=== PATIENT | female | born 1950 | race Hispanic/Latino ===

== ENCOUNTER → 2019-04-15 | Outpatient (CLI) | payer OTHER | END | disposition home or self-care (01) | LOC: RAH 09:00 | PROVIDERS: ATTEND Family Medicine | DX: Z12.31 Encounter for screening mammogram for malignant neoplasm of breast (principal) | CPT/HCPCS: 77067 ==

== ENCOUNTER → 2020-04-17 | Outpatient (CLI) | payer OTHER, MEDICARE | END | disposition home or self-care (01) | LOC: RAH 09:44 | PROVIDERS: ATTEND Family Medicine | DX: Z12.31 Encounter for screening mammogram for malignant neoplasm of breast (principal) ==

== ENCOUNTER → 2020-05-09 | Outpatient (CLI) | payer OTHER, MEDICARE | END | disposition home or self-care (01) | LOC: RAH 08:30 | PROVIDERS: ATTEND Family Medicine | DX: K76.0 Fatty (change of) liver, not elsewhere classified (principal); D69.6 Thrombocytopenia, unspecified | CPT/HCPCS: 76700 ==

== ENCOUNTER → 2021-04-29 | Outpatient (CLI) | payer OTHER, MEDICARE | END | disposition home or self-care (01) | LOC: RAH 13:45 | PROVIDERS: ATTEND Family Medicine | DX: Z12.31 Encounter for screening mammogram for malignant neoplasm of breast (principal); Z00.01 Encounter for general adult medical examination with abnormal findings | CPT/HCPCS: 77067 ==

== ENCOUNTER → 2022-04-30 | Outpatient (CLI) | payer OTHER, MEDICARE | END | disposition home or self-care (01) | LOC: RAH 09:08 | PROVIDERS: ATTEND Family Medicine | DX: Z12.31 Encounter for screening mammogram for malignant neoplasm of breast (principal) | CPT/HCPCS: 77067 ==

== ENCOUNTER 2022-10-12 02:05 | Observation (INO) | payer OTHER, MEDICARE ==
[~2022-10-12] VITALS: Ht 154.9 cm; Wt 69.6 kg
[2022-10-12 02:37] LABS: BASOPHILS % (AUTO) 0.2 % (0.0-5.0); EOSINOPHILS % (AUTO) 0.4 % (0.0-8.0); HEMATOCRIT 34.7 % (36-48); LYMPHOCYTES % (AUTO) 17.3 % (21.0-51.0); MEAN CORPUSCULAR HEMOGLOBIN 28.8 pg (27.0-33.0); MEAN CORPUSCULAR HGB CONC 36.9 g/dL (32.0-36.0); MEAN CORPUSCULAR VOLUME 78.2 fL (79-99); MONOCYTES % (AUTO) 4.6 % (3.0-13.0); NEUTROPHILS % (AUTO) 77.3 % (40.0-77.0); PLATELET COUNT (AUTO) 141 K/uL (130-400); RED BLOOD CELL COUNT(AUTO) 4.44 MIL/uL (4.00-5.50); RED CELL DISTRIBUTION WIDTH 11.6 % (11.0-15.5); WHITE BLOOD COUNT (AUTO) 8.5 K/uL (4.8-10.8)
[2022-10-12 02:43] LABS: APPEARANCE,URINE CLEAR (CLEAR); BILIRUBIN,URINE NEGATIVE (NEGATIVE); COLOR,URINE COLORLESS (YELLOW); GLUCOSE, URINE (UA) >=1000 mg/dL (NEGATIVE); KETONES,URINE 5 mg/dL (NEGATIVE); LEUKOCYTE ESTERASE ,URINE NEGATIVE Leu/uL (NEGATIVE); NITRATE,URINE NEGATIVE (NEGATIVE); PH,URINE 7.5 (5.0-8.0); PROTEIN,URINE NEGATIVE (NEGATIVE); UROBILINOGEN,URINE 0.2 mg/dL (0.2-1.0)
[2022-10-12 02:53] LABS: ALBUMIN 3.9 g/dL (3.5-5.0); CREATININE 0.7 mg/dL (0.5-1.5); POTASSIUM 4.6 mmol/L (3.5-5.1); RBC,URINE 0-1 /HPF (0-1); TOTAL PROTEIN, SERUM 7.2 g/dL (6.0-8.3)
[2022-10-12 02:54] LABS: BACTERIA,URINE None Seen /HPF (None Seen); SQUAMOUS EPITHELIAL CELL,UR Rare /HPF (0-2); WBC,URINE None Seen /HPF (0-1)
[2022-10-12] MEDS: 0.9%NACL 1000ML 1,000 ML IV SCH ×2 (03:35→10:37)
[2022-10-12] MEDS: SODIUM CHLORIDE 1,000 MG TAB PO SCH ×2 (04:51→08:49)
[2022-10-12] MEDS ORDERED: MAGNESIUM 2GM PREMIX 50ML 50 ML IV PRN ×2 (05:00→10:30)
[2022-10-12] MEDS ORDERED: DOCUSATE SODIUM 100 MG CAP PO PRN (05:00)
[2022-10-12] MEDS ORDERED: KCL 20 MEQ ERTAB PO PRN ×2 (05:00→10:30)
[2022-10-12] MEDS ORDERED: CLONIDINE HCL 0.1 MG TABLET PO PRN (05:00)
[2022-10-12] MEDS ORDERED: TEMAZEPAM 15 MG CAPSULE PO PRN (05:00)
[2022-10-12] MEDS ORDERED: DEXTROSE 50%-WATER 50 ML DISP.SYRIN IV PRN ×2 (05:00→10:30)
[2022-10-12] MEDS ORDERED: ACETAMINOPHEN 650 MG SUPPOSITORY RC PRN (05:00)
[2022-10-12] MEDS ORDERED: LABETALOL 20MG SYG IV PRN (05:00)
[2022-10-12] MEDS ORDERED: LIDOCAINE HCL-MPF 1% 2ML VIAL IV PRN ×2 (05:00→10:30)
[2022-10-12] MEDS ORDERED: GLUCAGON 1MG KIT 1 MG ML IM PRN ×2 (05:00→10:30)
[2022-10-12] MEDS ORDERED: LACTULOSE 20 GM/30 ML UDCUP PO PRN (05:00)
[2022-10-12] MEDS ORDERED: ACETAMINOPHEN 325 MG TAB PO PRN (05:00)
[2022-10-12] MEDS ORDERED: POTASSIUM CHLORIDE 10% ELIXIR 20 MEQ/15 ML UDCUP PO PRN ×2 (05:00→10:30)
[2022-10-12] MEDS ORDERED: HYDRALAZINE 20MG/ML VIAL IV PRN (05:00)
[2022-10-12] MEDS ORDERED: POTASSIUM CHLORIDE 20MEQ/100ML 100 ML IV PRN ×2 (05:00→10:30)
[2022-10-12] MEDS: PANTOPRAZOLE 40 MG TAB DR PO SCH ×2 (06:01→08:49)
[2022-10-12 06:33] VITALS: BP 150/72
[2022-10-12] MEDS: INSULIN HUMULIN R 100 UNIT/ML 3ML SQ SCH ×5 (06:53→20:55)
[2022-10-12 08:13] VITALS: BP 140/62
[2022-10-12] MEDS: ENOXAPARIN SODIUM 30 MG/0.3 ML SQ SCH ×2 (08:49→17:29)
[2022-10-12] MEDS: ONDANSETRON 4MG INJ IVP PRN (08:49)
[2022-10-12] MEDS ORDERED: 0.9%NACL 1000ML 1,000 ML IV SCH (10:00)
[2022-10-12 10:36] LABS: CHLORIDE,URINE RANDOM 79 mmol/L (110-250); POTASSIUM,URINE RANDOM 36 mmol/L (25-125); SODIUM,URINE RANDOM 80 mmol/l (40-220)
[2022-10-12 10:42] LABS: INR 0.97 (0.85-1.15); PROTHROMBIN TIME 10.6 SEC (9.6-11.6)
[2022-10-12 10:44] LABS: CREATININE 0.7 mg/dL (0.5-1.5); PARTIAL THROMBOPLASTIN TIME 28.1 SEC (26.3-35.5); POTASSIUM 4.4 mmol/L (3.5-5.1)
[2022-10-12] MEDS ORDERED: ETOD400T4 PO (10:53)
[2022-10-12] MEDS ORDERED: LEVO125T11 PO (10:53)
[2022-10-12] MEDS ORDERED: LISI20TA24 PO (10:53)
[2022-10-12] MEDS ORDERED: ASPI-1443 PO (10:53)
[2022-10-12] MEDS ORDERED: ATOR40TA69 PO (10:53)
[2022-10-12] MEDS ORDERED: LINA5TAB PO (10:53)
[2022-10-12] MEDS ORDERED: AZIT250T9 PO (10:53)
[2022-10-12] MEDS ORDERED: METF-527 PO (10:53)
[2022-10-12] MEDS ORDERED: MECO10005 PO (10:53)
[2022-10-12] MEDS ORDERED: FOLI0.4T6 PO (10:53)
[2022-10-12] MEDS ORDERED: DESL5TAB45 PO (10:53)
[2022-10-12] MEDS ORDERED: BENZ-70 PO (10:53)
[2022-10-12] MEDS ORDERED: IPRATROPIUM/ALBUTEROL SULFATE 3 ML SOLUTION IH ONE (11:32)
[2022-10-12 12:18] VITALS: BP 122/76
[2022-10-12] MEDS ORDERED: 0.9%NACL 100ML 100 ML ONE (14:17)
[2022-10-12] MEDS: CEFTRIAXONE 2GM VIAL IVP SCH (14:18)
[2022-10-12] MEDS: AZITHROMYCIN 500MG+NS 250ML IVPB SCH (14:19)
[2022-10-12] MEDS: SUCRALFATE 1 GM TABLET PO SCH ×3 (14:19→23:40)
[2022-10-12 16:02] VITALS: BP 113/65
[2022-10-12 16:16] LABS: CREATININE 0.8 mg/dL (0.5-1.5); POTASSIUM 4.7 mmol/L (3.5-5.1)
[2022-10-12] MEDS ORDERED: GUAIFENESIN-DM 200/20 MG 10 ML ONE (17:48)
[2022-10-12] MEDS ORDERED: GUAIFENESIN-DM 200/20 MG 10 ML PO PRN (18:00)
[2022-10-12] MEDS: IPRATROPIUM/ALBUTEROL SULFATE 3 ML SOLUTION IH SCH ×2 (20:11→23:18)
[2022-10-12 20:27] VITALS: BP 135/74
[2022-10-12] MEDS: BENZONATATE 100 MG CAPSULE PO SCH (20:55)
[2022-10-12] MEDS: ATORVASTATIN 40 MG TABLET PO SCH (20:55)
[2022-10-12 22:45] LABS: CREATININE 0.8 mg/dL (0.5-1.5); POTASSIUM 4.2 mmol/L (3.5-5.1)
[2022-10-13] VITALS (7 sets, daily range): BP systolic 120–161; BP diastolic 65–94
[2022-10-13 03:53] LABS: HEMATOCRIT 35.8 % (36-48); MEAN CORPUSCULAR HEMOGLOBIN 28.9 pg (27.0-33.0); MEAN CORPUSCULAR HGB CONC 34.6 g/dL (32.0-36.0); MEAN CORPUSCULAR VOLUME 83.4 fL (79-99); RED BLOOD CELL COUNT(AUTO) 4.29 MIL/uL (4.00-5.50); WHITE BLOOD COUNT (AUTO) 5.7 K/uL (4.8-10.8)
[2022-10-13 04:02] LABS: CREATININE 0.8 mg/dL (0.5-1.5); MAGNESIUM 1.5 mg/dL (1.80-2.40); PHOSPHORUS 4.6 mg/dL (2.5-4.9); POTASSIUM 4.2 mmol/L (3.5-5.1)
[2022-10-13] MEDS: LEVOTHYROXINE 125 MCG TABLET PO SCH (06:12)
[2022-10-13] MEDS: SUCRALFATE 1 GM TABLET PO SCH ×4 (06:12→23:52)
[2022-10-13] MEDS: INSULIN HUMULIN R 100 UNIT/ML 3ML SQ SCH ×4 (06:13→21:00)
[2022-10-13] MEDS: IPRATROPIUM/ALBUTEROL SULFATE 3 ML SOLUTION IH SCH ×4 (06:54→23:15)
[2022-10-13] MEDS: CYANOCOBALAMIN (VITAMIN B-12) 1,000 MCG TABLET PO SCH (08:44)
[2022-10-13] MEDS: ASPIRIN 81 MG EC TAB PO SCH (08:44)
[2022-10-13] MEDS: FOLIC ACID 1 MG TABLET PO SCH (08:44)
[2022-10-13] MEDS: BENZONATATE 100 MG CAPSULE PO SCH ×3 (08:55→22:50)
[2022-10-13] MEDS: PANTOPRAZOLE 40 MG TAB DR PO SCH ×2 (08:55→22:50)
[2022-10-13] MEDS ORDERED: NON-FORMULARY MEDICATION 1 EACH (Folic Acid 1 MG) PO SCH (09:00)
[2022-10-13] MEDS ORDERED: NON-FORMULARY MEDICATION 1 EACH (Mecobalamin (B12 Active) 1,000 MCG) PO SCH (09:00)
[2022-10-13] MEDS ORDERED: PROPOFOL 10 MG/ML 20ML VIAL IV ONE (12:20)
[2022-10-13] MEDS ORDERED: LACTULOSE 20 GM/30 ML UDCUP PO SCH ×2 (14:00→16:00)
[2022-10-13] MEDS ORDERED: 0.9%NACL 100ML 100 ML ONE (14:02)
[2022-10-13] MEDS: AZITHROMYCIN 500MG+NS 250ML IVPB SCH (14:03)
[2022-10-13] MEDS: CEFTRIAXONE 2GM VIAL IVP SCH (14:03)
[2022-10-13 14:12] LABS: CREATININE 0.7 mg/dL (0.5-1.5); POTASSIUM 4.4 mmol/L (3.5-5.1)
[2022-10-13] MEDS: ENOXAPARIN SODIUM 30 MG/0.3 ML SQ SCH (16:12)
[2022-10-13] MEDS ORDERED: PEG 3350/NA SULF,BICARB,CL/KCL 4000 ML SOLN PO SCH (17:00)
[2022-10-13] MEDS: LEVOFLOXACIN 500 MG/D5W 100 ML 100 ML IV SCH (17:04)
[2022-10-13] MEDS: ONDANSETRON 4MG INJ IVP PRN (17:09)
[2022-10-13] MEDS ORDERED: BISACODYL 5 MG TABLET.DR PO SCH (21:00)
[2022-10-13] MEDS: ATORVASTATIN 40 MG TABLET PO SCH (22:51)
[2022-10-14] VITALS (20 sets, daily range): BP systolic 97–145; BP diastolic 47–86
[2022-10-14 04:42] LABS: HEMATOCRIT 34.4 % (36-48); MEAN CORPUSCULAR HEMOGLOBIN 28.7 pg (27.0-33.0); MEAN CORPUSCULAR HGB CONC 35.5 g/dL (32.0-36.0); MEAN CORPUSCULAR VOLUME 80.9 fL (79-99); RED BLOOD CELL COUNT(AUTO) 4.25 MIL/uL (4.00-5.50); RED CELL DISTRIBUTION WIDTH 12.1 % (11.0-15.5); WHITE BLOOD COUNT (AUTO) 7.5 K/uL (4.8-10.8)
[2022-10-14 05:09] LABS: ALBUMIN 3.4 g/dL (3.5-5.0); CREATININE 0.7 mg/dL (0.5-1.5); MAGNESIUM 1.8 mg/dL (1.80-2.40); PHOSPHORUS 3.7 mg/dL (2.5-4.9); POTASSIUM 3.9 mmol/L (3.5-5.1); TOTAL PROTEIN, SERUM 6.9 g/dL (6.0-8.3)
[2022-10-14] MEDS: SUCRALFATE 1 GM TABLET PO SCH ×3 (06:00→17:40)
[2022-10-14] MEDS: LEVOTHYROXINE 125 MCG TABLET PO SCH (06:30)
[2022-10-14] MEDS: IPRATROPIUM/ALBUTEROL SULFATE 3 ML SOLUTION IH SCH ×3 (06:32→18:47)
[2022-10-14] MEDS: INSULIN HUMULIN R 100 UNIT/ML 3ML SQ SCH ×4 (06:37→21:00)
[2022-10-14] MEDS ORDERED: 0.9%NACL 1000ML 1,000 ML IV ONE (11:45)
[2022-10-14] MEDS ORDERED: PROPOFOL 10 MG/ML 20ML VIAL IV ONE (12:55)
[2022-10-14] MEDS ORDERED: LIDOCAINE PF 100MG/5ML (2%) SYRINGE 5ML ONE (12:55)
[2022-10-14] MEDS: BENZONATATE 100 MG CAPSULE PO SCH ×3 (14:00→21:45)
[2022-10-14] MEDS: CYANOCOBALAMIN (VITAMIN B-12) 1,000 MCG TABLET PO SCH (14:46)
[2022-10-14] MEDS: ASPIRIN 81 MG EC TAB PO SCH (14:46)
[2022-10-14] MEDS: FOLIC ACID 1 MG TABLET PO SCH (14:47)
[2022-10-14] MEDS: CEFTRIAXONE 2GM VIAL IVP SCH (14:49)
[2022-10-14] MEDS: PANTOPRAZOLE 40 MG TAB DR PO SCH ×2 (14:54→21:45)
[2022-10-14] MEDS: LEVOFLOXACIN 500 MG/D5W 100 ML 100 ML IV SCH (17:40)
[2022-10-14] MEDS: ATORVASTATIN 40 MG TABLET PO SCH (21:45)
[2022-10-15] VITALS (20 sets, daily range): BP systolic 135–183; BP diastolic 68–90
[2022-10-15] MEDS: IPRATROPIUM/ALBUTEROL SULFATE 3 ML SOLUTION IH SCH ×3 (00:07→11:57)
[2022-10-15] MEDS: SUCRALFATE 1 GM TABLET PO SCH ×4 (06:00→17:31)
[2022-10-15] MEDS: FOLIC ACID 1 MG TABLET PO SCH (09:00)
[2022-10-15] MEDS: CYANOCOBALAMIN (VITAMIN B-12) 1,000 MCG TABLET PO SCH (09:00)
[2022-10-15] MEDS: ASPIRIN 81 MG EC TAB PO SCH (09:00)
[2022-10-15] MEDS: ENOXAPARIN SODIUM 30 MG/0.3 ML SQ SCH (09:00)
[2022-10-15] MEDS: INSULIN HUMULIN R 100 UNIT/ML 3ML SQ SCH ×2 (11:30→16:33)
[2022-10-15] MEDS ORDERED: LIDOCAINE PF 100MG/5ML (2%) SYRINGE 5ML ONE (11:40)
[2022-10-15] MEDS ORDERED: PROPOFOL 10 MG/ML 20ML VIAL IV ONE (11:40)
[2022-10-15] MEDS ORDERED: GLYCOPYRROLATE 1 MG/5 ML SYRINGE ONE (11:41)
[2022-10-15] MEDS ORDERED: ESMOLOL HCL 10 MG/ML 10 ML VIAL ONE (11:51)
[2022-10-15] MEDS: PANTOPRAZOLE 40 MG TAB DR PO SCH (13:37)
[2022-10-15] MEDS: BENZONATATE 100 MG CAPSULE PO SCH ×2 (13:38→13:43)
[2022-10-15] MEDS: CEFTRIAXONE 2GM VIAL IVP SCH (13:38)
[2022-10-15] MEDS: LEVOFLOXACIN 500 MG/D5W 100 ML 100 ML IV SCH (16:06)
[2022-10-15] MEDS ORDERED: SUCR1TAB PO (17:20)
[2022-10-15] MEDS ORDERED: DOXY100T21 PO (17:20)
== END 2022-10-15 18:10 | disposition home or self-care (01) ==
LOC: EDH 02:05 → EDHIP 04:14 → 2DH 06:06 → 4DH 10-15 00:14
PROVIDERS: ADMIT Internal Medicine; ATTEND Internal Medicine
DX: E87.1 Hypo-osmolality and hyponatremia (principal); Z20.822 Contact with and (suspected) exposure to COVID-19; J20.9 Acute bronchitis, unspecified; K21.9 Gastro-esophageal reflux disease without esophagitis; I10 Essential (primary) hypertension; E11.9 Type 2 diabetes mellitus without complications; E78.5 Hyperlipidemia, unspecified; E03.9 Hypothyroidism, unspecified; D64.9 Anemia, unspecified; N28.9 Disorder of kidney and ureter, unspecified; E66.9 Obesity, unspecified; E78.00 Pure hypercholesterolemia, unspecified; B96.81 Helicobacter pylori [H. pylori] as the cause of diseases classified elsewhere; E87.8 Other disorders of electrolyte and fluid balance, not elsewhere classified; I25.10 Atherosclerotic heart disease of native coronary artery without angina pectoris; K21.00 Gastro-esophageal reflux disease with esophagitis, without bleeding; K29.70 Gastritis, unspecified, without bleeding; K29.80 Duodenitis without bleeding; K57.30 Diverticulosis of large intestine without perforation or abscess without bleeding; K64.8 Other hemorrhoids; R62.7 Adult failure to thrive; R63.1 Polydipsia; T50.2X5A Adverse effect of carbonic-anhydrase inhibitors, benzothiadiazides and other diuretics, initial encounter; Z90.49 Acquired absence of other specified parts of digestive tract; Z98.891 History of uterine scar from previous surgery; Z79.899 Other long term (current) drug therapy; Z98.890 Other specified postprocedural states; Z90.710 Acquired absence of both cervix and uterus; Z68.29 Body mass index [BMI] 29.0-29.9, adult
CPT/HCPCS: 96372 ×4; 96365; 96366 ×5; 96375; 99284; 84443; 82550; 80051; 83874; 84484 ×2; 80053 ×2; 83880; 83690; 85025; 85610; 85730; 87804 ×2; 82948 ×15; 81001; 36415 ×3; 87635; 71045 ×2; 74176; 93005; 94640 ×12; 94664; 96376 ×3; 96367; 86677; 83735 ×2; 84100 ×2; 80048 ×2; 85027 ×2; 82533; 88305; 88342; 43239; 45378; 44376; G0378 ×77; J7030 ×5; J0696 ×4; J1650; J2405 ×2; J0456 ×2; J1815 ×4; J3475; J1956 ×3; J2704 ×3; A4620 ×3; A4215 ×2; A4223 ×3; A4222 ×3; A4216 ×2; J2001 ×2; A4657; A7002; J3490 ×2; 44360

== ENCOUNTER → 2023-01-01 | Outpatient (CLI) | payer OTHER, MEDICARE ==
[~2023-01-01] MED LIST: ASPI-1443 PO; ATOR40TA69 PO; BENZ-226 PO; DESL5TAB45 PO; DOXY100T21 PO; FOLI0.4T6 PO; LEVO125T11 PO; LINA5TAB PO; LISI20TA24 PO; MECO10005 PO; METF-527 PO; SUCR1TAB PO
== END | disposition home or self-care (01) ==
LOC: RAH 12:25
PROVIDERS: ATTEND Orthopaedic Surgery
DX: M71.22 Synovial cyst of popliteal space [Baker], left knee (principal); I70.0 Atherosclerosis of aorta
CPT/HCPCS: 93925

== ENCOUNTER → 2023-03-27 | Outpatient (CLI) | payer OTHER, MEDICARE | END | disposition home or self-care (01) | LOC: RAH 11:59 | PROVIDERS: ATTEND Orthopaedic Surgery | DX: M17.11 Unilateral primary osteoarthritis, right knee (principal) | CPT/HCPCS: 73700 ==

== ENCOUNTER 2023-04-07 07:19 | Observation (INO) | payer OTHER, MEDICARE ==
[2023-04-01 15:46] LABS: BASOPHILS % (AUTO) 0.3 % (0.0-5.0); EOSINOPHILS % (AUTO) 1.1 % (0.0-8.0); HEMATOCRIT 38.3 % (36-48); LYMPHOCYTES % (AUTO) 26.9 % (21.0-51.0); MEAN CORPUSCULAR HEMOGLOBIN 28.6 pg (27.0-33.0); MEAN CORPUSCULAR HGB CONC 33.2 g/dL (32.0-36.0); MEAN CORPUSCULAR VOLUME 86.3 fL (79-99); NEUTROPHILS % (AUTO) 65.5 % (40.0-77.0); PLATELET COUNT (AUTO) 118 K/uL (130-400); RED BLOOD CELL COUNT(AUTO) 4.44 MIL/uL (4.00-5.50); WHITE BLOOD COUNT (AUTO) 8.8 K/uL (4.8-10.8)
[2023-04-01 15:54] LABS: CREATININE 0.8 mg/dL (0.5-1.5); POTASSIUM 4.9 mmol/L (3.5-5.1)
[2023-04-01 15:56] LABS: INR 0.97 (0.85-1.15); PROTHROMBIN TIME 10.6 SEC (9.6-11.6)
[2023-04-01 15:57] LABS: PARTIAL THROMBOPLASTIN TIME 25.6 SEC (26.3-35.5)
[2023-04-01 16:12] VITALS: BP 137/62
[2023-04-07] VITALS (26 sets, daily range): BP systolic 119–143; BP diastolic 53–71
[~2023-04-07] VITALS: Ht 149.9 cm; Wt 70.9 kg
[~2023-04-07 07:19] MED LIST changes: -BENZ-226 PO; -DESL5TAB45 PO; -DOXY100T21 PO; +LATA2.5D14 OU; -LEVO125T11 PO; +LEVO25TA54 PO; -SUCR1TAB PO
[2023-04-07] MEDS: METFORMIN HCL 500 MG TAB.SR.24H PO SCH ×2 (08:00→17:00)
[2023-04-07] MEDS ORDERED: 0.9%NACL 1000ML 1,000 ML IV ONE (08:27)
[2023-04-07] MEDS ORDERED: CEFAZOLIN SODIUM 2 GM VIAL ONE (08:28)
[2023-04-07] MEDS: LINAGLIPTIN 5 MG TABLET PO SCH (09:00)
[2023-04-07] MEDS: LISINOPRIL 20 MG TABLET PO SCH (09:00)
[2023-04-07] MEDS ORDERED: ONDANSETRON 4MG INJ IVP PRN (10:00)
[2023-04-07] MEDS ORDERED: KCL 20 MEQ ERTAB PO PRN (10:00)
[2023-04-07] MEDS ORDERED: POTASSIUM CHLORIDE 10% ELIXIR 20 MEQ/15 ML UDCUP PO PRN (10:00)
[2023-04-07] MEDS ORDERED: HYDROCODONE/ACETAMINOPHEN 5/325 MG TAB PO PRN (10:00)
[2023-04-07] MEDS: 0.9%NACL 1000ML 1,000 ML IV SCH ×2 (10:00→21:41)
[2023-04-07] MEDS ORDERED: POTASSIUM CHLORIDE 20MEQ/100ML 100 ML IV PRN (10:00)
[2023-04-07] MEDS ORDERED: ONDANSETRON 4MG INJ ONE (11:04)
[2023-04-07] MEDS ORDERED: MIDAZOLAM HCL 1 MG/ML 2ML VIAL ONE (11:04)
[2023-04-07] MEDS ORDERED: SUCCINYLCHOLINE 200MG/10ML SYR ONE (11:04)
[2023-04-07] MEDS ORDERED: GLYCOPYRROLATE 1 MG/5 ML SYRINGE ONE (11:04)
[2023-04-07] MEDS ORDERED: PROPOFOL 10 MG/ML 20ML VIAL IV ONE (11:04)
[2023-04-07] MEDS ORDERED: LIDOCAINE PF 100MG/5ML (2%) SYRINGE 5ML ONE (11:04)
[2023-04-07] MEDS ORDERED: NEOSTIGMINE 5MG/5ML SYR IV ONE (11:04)
[2023-04-07] MEDS ORDERED: DEXAMETHASONE SOD PHOSPHATE 10MG/ML 1ML VIAL ONE (11:04)
[2023-04-07] MEDS ORDERED: FENTANYL CITRATE PF 50 MCG/1 ML 2ML VIAL ONE (11:05)
[2023-04-07] MEDS ORDERED: TRANEXAMIC ACID 1000MG/10ML ONE (11:12)
[2023-04-07] MEDS ORDERED: ROPIVACAINE 0.5% 5MG/ML 30ML IJ ONE (11:14)
[2023-04-07] MEDS: INSULIN HUMULIN R 100 UNIT/ML 3ML SQ SCH ×3 (11:30→21:33)
[2023-04-07] MEDS ORDERED: EPHEDRINE SULFATE 50 MG/ML AMPULE ONE (11:50)
[2023-04-07] MEDS ORDERED: MORPHINE PF 100MG/10ML AMP IV ONE (12:55)
[2023-04-07] MEDS ORDERED: ROCURONIUM BROMIDE 10MG/1ML 5ML VL ONE (12:55)
[2023-04-07] MEDS ORDERED: KETOROLAC 30MG VIAL (30MG/ML) ONE (12:58)
[2023-04-07] MEDS: ACETAMINOPHEN 1,000 MG/100 ML VIAL IV SCH ×3 (14:08→21:46)
[2023-04-07] MEDS ORDERED: ALBUTEROL 0.083% 2.5 MG/3 ML INH IH ONE (14:19)
[2023-04-07] MEDS ORDERED: EPINEPHRINE PF 1MG (1:1,000) 1 MG/ML AMP ONE (14:27)
[2023-04-07] MEDS: RACEPINEPHRINE HCL 2.25% 0.5 ML NEB SOLN NEB SCH (14:30)
[2023-04-07] MEDS: CEFAZOLIN SODIUM 1 GM VIAL IVPB SCH ×2 (15:00→22:37)
[2023-04-07] MEDS: IBUPROFEN 800MG + NS 250ML IV SCH ×2 (16:38→18:53)
[2023-04-07] MEDS: HYDROCODONE/ACETAMINOPHEN 10/325 MG TAB PO PRN ×2 (16:53→18:53)
[2023-04-07] MEDS: LATANOPROST 2.5 ML DROPS OU SCH (21:31)
[2023-04-07] MEDS: FAMOTIDINE 20MG TAB PO SCH (21:31)
[2023-04-08] VITALS (7 sets, daily range): BP systolic 96–132; BP diastolic 45–63
[2023-04-08] MEDS: IBUPROFEN 800MG + NS 250ML IV SCH (04:34)
[2023-04-08 04:40] LABS: HEMATOCRIT 33.2 % (36-48); MEAN CORPUSCULAR HGB CONC 33.7 g/dL (32.0-36.0); RED BLOOD CELL COUNT(AUTO) 3.86 MIL/uL (4.00-5.50); RED CELL DISTRIBUTION WIDTH 11.9 % (11.0-15.5); WHITE BLOOD COUNT (AUTO) 11.6 K/uL (4.8-10.8)
[2023-04-08 04:57] LABS: CREATININE 0.8 mg/dL (0.5-1.5); POTASSIUM 4.2 mmol/L (3.5-5.1)
[2023-04-08] MEDS: INSULIN HUMULIN R 100 UNIT/ML 3ML SQ SCH ×4 (05:40→21:00)
[2023-04-08] MEDS: 0.9%NACL 1000ML 1,000 ML IV SCH (06:00)
[2023-04-08] MEDS: LEVOTHYROXINE 25 MCG TABLET PO SCH (06:32)
[2023-04-08] MEDS: FAMOTIDINE 20MG TAB PO SCH ×2 (08:20→21:01)
[2023-04-08] MEDS: POLYETHYLENE GLYCOL 3350 17 GM POWD.PACK PO SCH (08:20)
[2023-04-08] MEDS: LINAGLIPTIN 5 MG TABLET PO SCH (08:21)
[2023-04-08] MEDS: METFORMIN HCL 500 MG TAB.SR.24H PO SCH ×2 (08:21→16:46)
[2023-04-08] MEDS: HYDROCODONE/ACETAMINOPHEN 10/325 MG TAB PO PRN ×3 (08:23→16:46)
[2023-04-08] MEDS: LISINOPRIL 20 MG TABLET PO SCH (09:00)
[2023-04-08] MEDS: RACEPINEPHRINE HCL 2.25% 0.5 ML NEB SOLN NEB SCH (11:45)
[2023-04-08] MEDS ORDERED: HYDR-4068 PO (16:50)
[2023-04-08] MEDS: ASPIRIN 81 MG EC TAB PO SCH (21:01)
[2023-04-08] MEDS: MORPHINE 4 MG SYG IVP PRN (21:02)
[2023-04-08] MEDS: LATANOPROST 2.5 ML DROPS OU SCH (21:03)
[2023-04-09] MEDS: MORPHINE 4 MG SYG IVP PRN ×2 (01:54→06:45)
[2023-04-09 04:12] VITALS: BP 140/69
[2023-04-09] MEDS: LEVOTHYROXINE 25 MCG TABLET PO SCH (06:44)
[2023-04-09] MEDS: INSULIN HUMULIN R 100 UNIT/ML 3ML SQ SCH ×3 (06:44→11:47)
[2023-04-09] MEDS: POLYETHYLENE GLYCOL 3350 17 GM POWD.PACK PO SCH (07:35)
[2023-04-09] MEDS: LINAGLIPTIN 5 MG TABLET PO SCH (07:36)
[2023-04-09] MEDS: FAMOTIDINE 20MG TAB PO SCH (07:36)
[2023-04-09] MEDS: METFORMIN HCL 500 MG TAB.SR.24H PO SCH (07:36)
[2023-04-09] MEDS: ASPIRIN 81 MG EC TAB PO SCH (07:36)
[2023-04-09] MEDS: LISINOPRIL 20 MG TABLET PO SCH (07:37)
[2023-04-09] MEDS: HYDROCODONE/ACETAMINOPHEN 10/325 MG TAB PO PRN ×2 (07:39→11:45)
[2023-04-09 08:14] VITALS: BP 154/71
[2023-04-09 11:51] VITALS: BP 152/67
[2023-04-09] MEDS: RACEPINEPHRINE HCL 2.25% 0.5 ML NEB SOLN NEB SCH (14:30)
[2023-04-10] MEDS ORDERED: BISACODYL 10 MG SUPP.RECT RC PRN (10:00)
== END 2023-04-09 16:58 | disposition home or self-care (01) ==
LOC: DAH 07:19 → DAHIP 07:20 → DAH 07:20 → 4DH 17:15
PROVIDERS: ADMIT Orthopaedic Surgery; ATTEND Orthopaedic Surgery
DX: M17.11 Unilateral primary osteoarthritis, right knee (principal); Z20.822 Contact with and (suspected) exposure to COVID-19; E11.9 Type 2 diabetes mellitus without complications; E78.5 Hyperlipidemia, unspecified; I10 Essential (primary) hypertension; E66.9 Obesity, unspecified; Z96.651 Presence of right artificial knee joint; Z79.899 Other long term (current) drug therapy
CPT/HCPCS: 80048 ×2; 85025; 85610; 85730; 87426; 36415 ×2; 87641; 27447; 64447; 96376 ×2; 96372 ×3; 96365; 96366 ×2; 96375 ×2; 96367; 82948 ×9; 94640; 85027; 73562; 97161; 97039 ×4; 97116 ×4; 97530; A6260; C1776 ×4; G0378 ×49; A4663; J7030 ×2; J3010; J0690 ×2; J3490 ×4; J0330; J1100; J2710; J2001; J0171; J2250; J2704; J2274; J2405 ×2; J1885; J2795; J1741 ×2; J1815 ×2; A6223; G0168; A4649 ×3; A4930; A6212; A5120 ×2; A4215; A4223; A4222; A4221; J2270 ×3

== ENCOUNTER → 2023-05-07 | Outpatient (CLI) | payer OTHER, MEDICARE ==
[~2023-05-07] MED LIST changes: +HYDR-4068 PO
== END | disposition home or self-care (01) ==
LOC: RAH 09:15
PROVIDERS: ATTEND Family Medicine
DX: Z12.31 Encounter for screening mammogram for malignant neoplasm of breast (principal)
CPT/HCPCS: 77067

== ENCOUNTER → 2024-05-10 | Outpatient (CLI) | payer OTHER, MEDICARE | END | disposition home or self-care (01) | LOC: RAH 07:55 | PROVIDERS: ATTEND Family Medicine | DX: Z12.31 Encounter for screening mammogram for malignant neoplasm of breast (principal) | CPT/HCPCS: 77067 ==

== ENCOUNTER → 2024-08-02 | Outpatient (CLI) | payer OTHER, MEDICARE | END | disposition home or self-care (01) | LOC: SHCH 09:56 | PROVIDERS: ATTEND Internal Medicine Cardiovascular Disease | DX: I25.119 Atherosclerotic heart disease of native coronary artery with unspecified angina pectoris (principal); R01.1 Cardiac murmur, unspecified | CPT/HCPCS: 93306 ==

== ENCOUNTER → 2024-08-12 | Outpatient (CLI) | payer OTHER, MEDICARE ==
[2024-08-12] MEDS: REGADENOSON 0.4 MG/5 ML PF SYG IVP ONE (11:25)
== END | disposition home or self-care (01) ==
LOC: SHCH 08:46
PROVIDERS: ATTEND Internal Medicine Cardiovascular Disease
DX: I25.10 Atherosclerotic heart disease of native coronary artery without angina pectoris (principal); R01.1 Cardiac murmur, unspecified
CPT/HCPCS: 78452; 93017; J2785; A9500 ×2

== ENCOUNTER → 2025-04-04 | Outpatient (CLI) | payer OTHER, MEDICARE ==
--- NOTE | 2025-04-04 14:14 | HMCIMG ---
MRI OF THE CERVICAL SPINE WITHOUT GADOLINIUM Technique: Sagittal T1 and T2 FSE, Sagittal STIR and Sagittal proton density images were completed through the cervical spine. Axial T1, T2 and proton density images were also acquired. FINDINGS: There are spondylitic changes of the cervical spine and there is straightening consistent with spasm. No cord signal abnormalities are seen. Evaluation of the cervical spine by level: C1-C2: There is no spinal canal stenosis. No disc protrusion or extrusion is noted. There is no neural foraminal stenosis, impingement, or narrowing. C2-C3: There is no spinal canal stenosis. No disc protrusion or extrusion is noted. There is no neural foraminal stenosis, impingement, or narrowing. C3-C4: There is a central zone disc protrusion causing spinal canal stenosis. Bilateral nerve root impingement noted. C4-C5: There is a central zone disc protrusion causing spinal canal stenosis. Bilateral nerve root impingement noted. C5-C6: There is a central zone disc protrusion causing spinal canal stenosis. Bilateral nerve root impingement noted. C6-C7: There is no spinal canal stenosis. No disc protrusion or extrusion is noted. There is no neural foraminal stenosis, impingement, or narrowing. C7-T1: There is no spinal canal stenosis. No disc protrusion or extrusion is noted. There is no neural foraminal stenosis, impingement, or narrowing. Impression: Multilevel disc protrusions, with nerve root impingement and neural foraminal narrowing as well as spinal canal stenosis at those levels. .
== END | disposition home or self-care (01) ==
LOC: RAH 13:21
PROVIDERS: ATTEND Family Medicine
DX: S13.9XXA Sprain of joints and ligaments of unspecified parts of neck, initial encounter (principal); S13.100A Subluxation of unspecified cervical vertebrae, initial encounter; M47.812 Spondylosis without myelopathy or radiculopathy, cervical region; M50.222 Other cervical disc displacement at C5-C6 level; M50.221 Other cervical disc displacement at C4-C5 level; M50.21 Other cervical disc displacement, high cervical region; M48.02 Spinal stenosis, cervical region; X58.XXXA Exposure to other specified factors, initial encounter; Y93.89 Activity, other specified; Y92.89 Other specified places as the place of occurrence of the external cause; Y99.8 Other external cause status
CPT/HCPCS: 72141

== ENCOUNTER → 2025-05-11 | Outpatient (CLI) | payer OTHER, MEDICARE | END | disposition home or self-care (01) | LOC: RAH 11:39 | PROVIDERS: ATTEND Family Medicine | DX: Z12.31 Encounter for screening mammogram for malignant neoplasm of breast (principal) | CPT/HCPCS: 77067 ==